=== PATIENT | female | born 1980 | race Caucasian/White ===

== ENCOUNTER 2022-05-21 10:55 | Emergency (ER) | payer OTHER, SELFPAY ==
[2022-05-21 11:03] VITALS: BP 109/86; PULSE 97; RESP 16; TEMP 37.2; O2SAT 94
--- NOTE | 2022-05-21 11:50 | ED.URI ---
HPI - URI/Sore Throat General Chief Complaint: Upper Respiratory Infection Stated Complaint: flu/cold sx Time Seen by Provider: 05/21/22 11:50 Source: patient and RN notes reviewed Mode of arrival: ambulatory Limitations: no limitations History of Present Illness HPI Narrative: 42-year-old female presented for complaints of sinus pressure and congestion, fatigue, and subjective fever. Onset 1 week. Endorses feeling winded and fatigue on exertion. She did a negative COVID test at home. She denies shortness of breath, wheezing, otalgia, nausea, vomiting or chest pain. Denies known sick contacts. She is taking nothing for symptoms. MD elicited complaint: cough Related Data Home Medications Medication Instructions Recorded Confirmed bupropion HCl 300 mg 24 hr tablet, mg PO 05/21/22 extended release buspirone 10 mg tablet mg 05/21/22 hydroxyzine pamoate 50 mg capsule mg 05/21/22 olanzapine 5 mg disintegrating mg 05/21/22 tablet Allergies Allergy/AdvReac Type Severity Reaction Status Date / Time DIPHENHYDRAMINE HCL Allergy Unknown Anaphylactic Uncoded 05/21/22 11:28 Shock Review of Systems Review of Systems: ROS per HPI [facility] Past Medical History Medical History Anxiety Exam Narrative: GENERAL: mildly Ill-appearing, nontoxic EYES: PERRLA, conjunctivae clear ENT: Mucous membranes moist. TMs pearly blake with dull light reflex bilaterally; no tragal tenderness. Oropharynx erythematous without lesions or exudate NECK: Supple. No lymphadenopathy CHEST: Clear to auscultation, breath sounds equal. No wheezing, rhonchi, rales, or stridor. No respiratory distress, speaks in full sentences. HEART: Regular rate and rhythm. No murmur heard. SKIN: Warm, dry, no rash. NEURO: Alert and oriented x3. Course Course Emergency Course: Patient is aware of diagnosis, understands and agrees to treatment plan. Anticipatory guidance given. Patient agrees to follow-up as directed and is aware of reasons to seek care at the emergency department. Portions of this record may have been created with voice recognition software Level of Care: Express Care Visit Vital Signs Vital signs: Vital Signs Temperature 99.0 F 05/21/22 11:03 Pulse Rate 97 05/21/22 11:03 Respiratory Rate 16 05/21/22 11:03 Blood Pressure 109/86 05/21/22 11:03 Pulse Oximetry 94 05/21/22 11:03 Oxygen Delivery Room Air 05/21/22 11:03 Temperature 99.0 F 05/21/22 11:03 Pulse Rate 97 05/21/22 11:03 Respiratory Rate 16 05/21/22 11:03 Blood Pressure 109/86 05/21/22 11:03 Pulse Oximetry 94 05/21/22 11:03 Oxygen Delivery Room Air 05/21/22 11:03 reviewed MDM - URI/Sore Throat MDM Narrative Medical decision making narrative: Results of test reviewed with patient. Outside the window of Tamiflu. Advised supportive measures and signs/symptoms to go to the ER. Pt is appropriate for outpt treatment and f/u. Differential Diagnosis Differential diagnosis: Likely upper respiratory infection, sinusitis and viral infection Lab Data Labs: Influenza A Screen Positive Reference Range: Negative Influenza B Screen Negative Reference Range: Negative Discharge Plan Discharge Clinical Impression: Influenza Patient Disposition: Home, Self-Care Condition: Stable Instructions: Influenza (ED) Additional Instructions: Influenza positive You should avoid crowds until you are fever free for 24 hours without the use of fever reducing medications, or the symptoms are improved Rest. Drink plenty of fluids. Tylenol 1000mg every 8 hours as needed for pain/fever Recommend Flonase spray and Zyrtec (or Claritin/[place]) for sinus pressure/congestion over the counter Cough syrup may cause drowsiness; avoid driving or take it at nigh
== END 2022-05-21 12:03 | disposition home or self-care (01) ==
PROVIDERS: Emergency Provider Nurse Practitioner Family
DX: J10.1 Influenza due to other identified influenza virus with other respiratory manifestations (principal); Z20.822 Contact with and (suspected) exposure to COVID-19; F41.9 Anxiety disorder, unspecified
CPT/HCPCS: 87426; 87804; 99213; C9803; G0463